=== PATIENT | female | born 1935 ===

== ENCOUNTER 2017-10-29 14:26 | Emergency (ER) | payer OTHER ==
[~2017-10-29] VITALS: Ht 154.9 cm; Wt 68.0 kg
[2017-10-29] MEDS ORDERED: SYNTHROID50 MCG (14:47)
[2017-10-29] MEDS ORDERED: LOPRESSOR25 MG (14:47)
[2017-10-29] MEDS ORDERED: LIPITOR20 MG (14:47)
== END 2017-10-29 20:09 | disposition home or self-care (01) ==
LOC: ER 14:26
DX: S00.01XA Abrasion of scalp, initial encounter (principal); S50.311A Abrasion of right elbow, initial encounter; S70.01XA Contusion of right hip, initial encounter; S40.021A Contusion of right upper arm, initial encounter; S19.89XA Other specified injuries of other specified part of neck, initial encounter; W10.8XXA Fall (on) (from) other stairs and steps, initial encounter; Y93.89 Activity, other specified; Y92.513 Shop (commercial) as the place of occurrence of the external cause; Y99.8 Other external cause status

== ENCOUNTER 2021-11-08 16:57 | Emergency (ER) | payer OTHER ==
[~2021-11-08] VITALS: Ht 154.9 cm; Wt 61.2 kg
[~2021-11-08 16:57] MED LIST: LIPITOR20 MG; LOPRESSOR25 MG; SYNTHROID50 MCG
[2021-11-08] MEDS ORDERED: ZESTRIL20 MG (17:44)
[2021-11-08] MEDS ORDERED: CRESTOR20 MG (17:45)
== END 2021-11-08 19:48 | disposition home or self-care (01) ==
LOC: ER 16:57
DX: M62.838 Other muscle spasm (principal); I10 Essential (primary) hypertension

== ENCOUNTER 2022-02-26 10:50 | Outpatient (CLI) | payer OTHER ==
[~2022-02-26 10:50] MED LIST changes: +CRESTOR20 MG; +ZESTRIL20 MG
== END 2022-02-26 10:54 | disposition home or self-care (01) ==
LOC: TOM 10:50
PROVIDERS: ATTEND Psychiatry & Neurology Clinical Neurophysiology
DX: F01.50 Vascular dementia, unspecified severity, without behavioral disturbance, psychotic disturbance, mood disturbance, and anxiety (principal)

== ENCOUNTER → 2024-06-28 07:57 | Outpatient (CLI) | payer OTHER ==
[2024-06-28 08:58] LABS: CREATININE SERUM 0.73 mg/dL (0.55-1.02)
== END | disposition home or self-care (01) ==
LOC: LAB 07:57
PROVIDERS: ATTEND Radiology Diagnostic Radiology
DX: N80.03 Adenomyosis of the uterus (principal)

== ENCOUNTER → 2024-06-28 | Outpatient (CLI) | payer OTHER | END | disposition home or self-care (01) | LOC: TOM 08:44 | PROVIDERS: ATTEND General Practice | DX: N80.03 Adenomyosis of the uterus (principal); R10.9 Unspecified abdominal pain; R19.5 Other fecal abnormalities | CPT/HCPCS: 74177; Q9965 ==